=== PATIENT | male | born 1965 | race Caucasian/White ===

== ENCOUNTER 2018-07-29 05:33 | Day surgery (SDC) | payer BC ==
--- NOTE | 2018-07-28 17:25 | Pre-Procedure Note/Attestation ---
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 I attest that, if there was a reasonable possibility of needing a blood transfusion, the patient (or the patient's legal sales representative girls' apparel) was given the [facility] standardized written summary, pursuant to the [place] Blood Safety Act ([place] Health and Safety Code # 1645, as amended). I attest that I re-evaluated the patient just prior to the surgery and that there has been no change in the patient's H&P, done by PMD. Jesus Ponce MD Jul 28, 2018 17:25
--- NOTE | 2018-07-28 17:27 | Brief Operative Note ---
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 Procedure: Excision of left submandibular tumor. Post-op Diagnosis: same as pre-op Surgeon: Jesus Ponce Physician Assistant Primary Care: none Additional Surgeons: none Anesthesiologist: Delgado Anesthesia: general Specimen: yes - left submandibular gland Complications: none Condition: stable Fluids: D5LR Estimated Blood Loss: volume - 40 cc Drains: tess Packing: none Implant(s) used?: No Jesus Ponce MD Jul 28, 2018 17:27
--- NOTE | 2018-07-28 17:30 | Discharge Instructions ---
Discharge Instructions Discharge Instructions Follow up with: 07/30/[address] Ponce's office Diet: regular, renal (80g protein, 2GM) Resume Normal Activity?: No Activity: light activity Pneumonia Vaccine: pt refused vaccine Influenza Vaccine (Jun to Nov): pt refused vaccine Follow Up Orders Pt has printed post op instructions that we reviewed at his pre op appt. Return to Work/School on: Aug 11, 2018 For Surgical Patients May shower: No For Congestive Heart Failure Reminder Report to your physician any weight gain of 5 pounds or more in one week. Jesus Ponce MD Jul 28, 2018 17:30
[2018-07-29] VITALS (11 sets, daily range): BP systolic 98–163; BP diastolic 50–98
[~2018-07-29] VITALS: Ht 188 cm; Wt 90.7 kg
[~2018-07-29 05:33] MED LIST: LEXAPRO10 MG ORAL; MELATONIN10 M4 PO; PROPRANOLOL HCL60 M1 PO; TRAZODONE HCL100 MG ORAL; TRUVADA 200 MG1 EAC1 ORAL; VITAMIN D22000 UNIT PO; WELLBUTRIN XL150 M3 ORAL
[2018-07-29] MEDS ORDERED: Bupivacaine w/Epi 0.25% 30ml Vial INJ ONE (07:14)
[2018-07-29] MEDS ORDERED: Bacitracin Oint 15gm Tube TOPIC ONE (07:14)
[2018-07-29] MEDS ORDERED: Lidocaine 1% 10mg/ml/Epi 0.005mg/ml 30ml vial INJ ONE (07:14)
[2018-07-29] MEDS ORDERED: ceFAZolin sod 1 GM in D5W 55 ML IV ONE (07:15)
--- NOTE | 2018-07-29 07:21 | Anethesia Preoperative Eval ---
Anesthesia Pre-op PMH/ROS General Date of Evaluation: Jul 29, 2018 Anesthesiologist: Delgado ASA Score: ASA 2 Mallampati Score Class I : Soft palate, uvula, fauces, pillars visible Class II: Soft palate, uvula, fauces visible Class III: Soft palate, base of uvula visible Class IV: Only hard plate visible Mallampati Classification: Class II Surgeon: Kris Diagnosis: Left submandibular tumor Surgical Procedure: Excision left submandibular tumor Anesthesia History: none Family History: no anesthesia problems Allergies: Coded Allergies: No Known Allergies (Unverified , 07/28/18) Medications: see eMAR Patient NPO?: Yes NPO Date: Jul 28, 2018 NPO Time: 22:00 Past Medical History Cardiovascular: Denies: HTN, CAD, CA, valve dz, arrhythmia, other Pulmonary: Denies: asthma, COPD, FUNMI, other Gastrointestinal/Genitourinary: Reports: GERD; Denies: CRI, ESRD, other Neurologic/Psychiatric: Reports: depression/anxiety; Denies: dementia, CVA, TIA, other Endocrine: Denies: DM, hypothyroidism, steroids, other HEENT: Denies: cataract (L), cataract (R), glaucoma, [place] (L), [place] (R), other Hematology/Immune: Denies: anemia, DVT, bleeding disorder, other Musculoskeletal/Integumentary: Denies: OA, RA, DJD, DDD, edema, other PSxH Narrative: Denies Anesthesia Pre-op Phys. Exam Physician Exam Last Vital Signs Date Time Temp Pulse Resp B/P (MAP) Pulse Ox O2 Delivery O2 Flow Rate FiO2 07/29/18 06:06 97.3 58 20 143/83 96 Room Air Constitutional: NAD Cardiovascular: RRR Respiratory: CTA Airway Exam Mallampati Score: Class II MO: full ROM: full Teeth: intact Anesthesia Pre-op A/P Labs see chart Studies Pre-op Studies: EKG - sr Risk Assessment & Plan Assessment: ASA II Plan: GA Status Change Before Surgery: No Pre-Antibiotics Drug: Ancef 2g Given Within 1 Hr of Incision: Yes Kristie Maldonado MD Jul 29, 2018 07:21
[2018-07-29] MEDS ORDERED: Dexamethasone 4mg/ml vial IVP ONE (07:30)
[2018-07-29] MEDS ORDERED: fentaNYL 100 mcg/2 mL IV ONE (07:32)
[2018-07-29] MEDS ORDERED: Lidocaine 1% MPF 10mg/ml 5ml ONE (07:32)
[2018-07-29] MEDS ORDERED: Propofol 200mg/20ml IV ONE (07:32)
[2018-07-29] MEDS ORDERED: Midazolam 2mg/2ml Inj ONE (07:32)
[2018-07-29] MEDS ORDERED: LR 1000ml 1,000 ML IVLG SCH (07:39)
[2018-07-29] MEDS ORDERED: LORazepam Inj 2mg/ml 1ml IV PRN (07:45)
[2018-07-29] MEDS ORDERED: Hydromorphone 0.5mg/0.5ml inj IVP PRN (07:45)
[2018-07-29] MEDS ORDERED: Midazolam 2mg/2ml Inj IVP PRN (07:45)
[2018-07-29] MEDS ORDERED: fentaNYL 100 mcg/2 mL IV PRN (07:45)
[2018-07-29] MEDS ORDERED: DiphenhydrAMINE 50mg/ml Inj IVP PRN (07:45)
[2018-07-29] MEDS ORDERED: NS Irrig 1000ml ONE (07:59)
[2018-07-29] MEDS ORDERED: Sterile Water Irrig 1000ml IRRIG ONE (07:59)
[2018-07-29] MEDS ORDERED: LR 1000ml ONE (07:59)
--- NOTE | 2018-07-29 09:45 | 48 Hour Post Anesthesia Eval ---
Post Anesthesia Evaluation Procedure: Left submandibular gland tumor excision Date of Evaluation: Jul 29, 2018 Airway: patent Nausea: No Vomiting: No Pain Intensity: 0 Hydration Status: adequate Cardiopulmonary Status: at baseline Mental Status/LOC: patient returned to baseline Post-Anesthesia Complications: 0 Follow-up care needed: ready to discharge Kristie Maldonado MD Jul 29, 2018 09:45
--- NOTE | 2018-07-29 09:45 | Immediate Post-Op Evaluation ---
Immediate Post-Op Evalulation Immediate Post-Op Evalulation Procedure: Left submandibular gland tumor excision Date of Evaluation: Jul 29, 2018 Time of Evaluation: 09:45 IV Fluids: 900 Blood Products: 0 Estimated Blood Loss: 40 Urinary Output: 0 Blood Pressure Systolic: 98 Blood Pressure Diastolic: 51 Pulse Rate: 51 Respiratory Rate: 17 O2 Sat by Pulse Oximetry: 99 Temperature (Fahrenheit): 97.7 Pain Score (1-10): 0 Nausea: No Vomiting: No Complications 0 Patient Status: awake, reacts, patent, none Hydration Status: adequate Drug: Ancef 2g Given Within 1 Hr of Incision: Yes Time Given: 08:10 Kristie Maldonado MD Jul 29, 2018 09:45
[2018-07-29] MEDS ORDERED: Metoclopramide 10mg/2ml Inj IVP PRN (10:00)
[2018-07-29] MEDS ORDERED: Norco 5mg/325mg tab ORAL PRN (10:00)
[2018-07-29] MEDS ORDERED: HYDROmorphone 1mg/ml Carpuject SUBQ PRN (10:00)
--- NOTE | 2018-07-29 18:45 | Operative Note - Dictated ---
DATE OF OPERATION: 07/29/2018 SURGEON: Jesus Ponce M.D. LEAD MILITARY ANALYST: None. ANESTHESIOLOGIST: Dr. Natarajan. ANESTHESIA: Oral endotracheal anesthesia in 10 mL 50:50 mixture of 1% lidocaine 1:100,000 epinephrine and Marcaine 0.5% with 1:200,000 epinephrine. INDICATION FOR PROCEDURE: The patient has had lymph nodes submandibular gland as well as repeatedly left submandibular gland area. MRI indicated stones versus tumor and was decided to remove the gland to determine this. PREOPERATIVE DIAGNOSIS: Left submandibular triangle tumor. POSTOPERATIVE DIAGNOSIS: Left submandibular gland tumor. FINDINGS: Parts of the gland were hard and felt like it have little rocks in it.. PROCEDURE: Excision of left submandibular gland with multilayer reconstruction. TECHNIQUE: The patient prepped and draped in usual manner. Time-out was performed. All agreed as to the procedure to be done. Appropriate equipment was in the room. I made an incision 2-1/2 fingerbreadths below the mandible on the left side. . I then took this down to platysma and then divided the platysma vertically and then went to the inferior aspect of the submandibular gland by anterior and posterior digastric muscles. I then dissected on the surface of the gland anteriorly and posteriorly and delivered slowly with a combination of small Metzenbaum, 4 x 4. The vessel coming into the gland was clamped after the gland cut and tied with 4-0 silks. I was able identify the hypoglossal nerve which remained intact. The gland was then removed completely. The duct was also tied off. The patient was extubated in the operating room, breathing on his own. In the recovery room 10 minutes later still was pretty sleepy. EBL: 40 mL. COMPLICATIONS: None. DRAINS: One [place]. Incision was closed with 3 layers of 4-0 Vicryl and skin approximated with a running 5-0 Prolene horizontal mattress. The patient was seen in my office tomorrow. Sponge and needle count was correct. Dressing included antibiotic ointment, Telfa fluffs, and tape. Jesus Ponce M.D. DR: Isaac JOB#: [id number] CC:
== END 2018-07-29 11:55 | disposition home or self-care (01) ==
LOC: SUR 05:33
DX: D11.7 Benign neoplasm of other major salivary glands (principal); K21.9 Gastro-esophageal reflux disease without esophagitis; F32.9 Major depressive disorder, single episode, unspecified; F41.9 Anxiety disorder, unspecified
CPT/HCPCS: 42440; J0690; J2250; J2704; J3010; 94003; 94150